=== PATIENT | male | born 1960 | race American Indian/Alaskan Native ===

== ENCOUNTER 2016-11-01 11:52 | Emergency (ER) | payer SELFPAY ==
--- NOTE | 2016-11-01 13:50 | Emergency Department Report ---
Entered by RIA HERRERA, acting as scribe for YANIRA JONES PA. - HPI History of Present Illness: Pt c/o foot ulcers on both feet with associated 9/10 constant sharp pain for 1 month. Pt reports he received a pedicure 1 month and notes he had skin removed from his feet. He states his feet subsequently became infected. Denies having numbness in feet. 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 Pt also c/o of numbness in right hand. Denies any right hand injury/trauma Reports fever and chills. Reports nausea and vomiting. PMHx of IDDM and HTN. Notes BP was 180 yesterday. - ROS Review of Systems: All system are negative unless stated in HPI above. - Exam Vital Signs: Vital Signs 11/01/16 12:51 Temperature 98.5 F Pulse Rate 80 Respiratory 18 Rate Blood Pressure 132/73 O2 Sat by Pulse 100 Oximetry Physical Exam: General: well nourished, well developed, 56 year old male in no acute distress and nontoxic in appearance Lungs: Clear to auscultation bilaterally, no rhonchi, wheezes, or rales. Normal work of breathing. No use of accessory muscles Extremities: No CCE. +2 pulses. Mild swelling to right foot. Negative calf tenderness bilaterally. Good color, warm temperature to feet bilaterally. Good movement of bilateral feet. Diminished sensation to feet bilaterally. Right hallux is discolored. Ecchymosis present around wound on right lateral foot with 5 cm x 6 cm of surrounding swelling and 4 cm x 5 cm of induration. Mild fluctuance and scabbing present with some dark tissue around wound with purulent drainage in center of wound to right foot. Erythema present around edges of right foot. Left hallux, 2nd toe, 3rd toe are discolored. Hard callus present on left foot that is crusted over with scabbing and drainage, and sharp edges to touch. No erythema noted to left foot. Left hallux toenail is partially off of nail bed. MSE screening note: Focused history and physical exam performed. Due to findings the following was ordered: see below <YANIRA JONES - Last Filed: 11/01/16 13:49> - Exam Vital Signs: Vital Signs 11/01/16 11/01/16 11/01/16 12:51 16:25 16:30 Temperature 98.5 F Pulse Rate 80 85 80 Respiratory 18 15 14 Rate Blood Pressure 132/73 160/82 O2 Sat by Pulse 100 100 Oximetry 11/01/16 11/01/16 16:41 16:51 Temperature Pulse Rate 77 88 Respiratory 17 18 Rate Blood Pressure 160/82 160/82 O2 Sat by Pulse 100 100 Oximetry MSE screening note: Focused history and physical exam performed. Due to findings the following was ordered: <TAMY SAINI - Last Filed: 11/01/16 17:32> Chief Complaint: Extremity Injury, Lower Stated Complaint: FOOT INFECTION Time Seen by Provider: 11/01/16 13:05 ED Medical Decision Making - Medical Decision Making MDM: Patient screened by provider in triage area. Appropriate protocol initiated. Patient to be seen by MD on main ED side. <YANIRA JONES - Last Filed: 11/01/16 13:49> - Lab Data Result diagrams: 11/01/16 14:02 11/01/16 14:02 <TAMY SAINI - Last Filed: 11/01/16 17:32> ED Disposition for MSE <YANIRA JONES - Last Filed: 11/01/16 13:49> <TAMY SAINI - Last Filed: 11/01/16 17:32> Condition: Stable - Addendum Date: 11/01/16 Note: Examination the patient. There is no evidence of abscess on clinical examination. Will give patient a 1 g of vancomycin control blood sugar advised patient is his primary care physician and f/u with a foot doctor. <TAMY SAINI - Last Filed: 11/01/16 17:32> This documentation as recorded by the SHARON eng JASMINE,accurately reflects the service I personally performed and the decisions made by me,YANIRA JONES PA.
[2016-11-01 14:35] LABS: Basophils % (Auto) 0.3 % (0.0-1.8); Eosinophils % (Auto) 1.3 % (0.0-4.3); Hemoglobin 10.8 gm/dl (11.8-15.2); Mean Corpuscular HGB Conc 33 % (32-34); Mean Corpuscular Volume 75 fl (84-94); Platelet Count 295 K/mm3 (140-440); Red Blood Count 4.37 M/mm3 (3.65-5.03); White Blood Count 13.2 K/mm3 (4.5-11.0)
[2016-11-01 14:37] LABS: Mean Corpuscular Hemoglobin 25 pg (28-32)
[2016-11-01 14:46] LABS: Alanine Aminotransferase 21 units/L (7-56); Albumin 3.9 g/dL (3.9-5); Albumin/Globulin Ratio 1.1 %; Alkaline Phosphatase 114 units/L (35-129); Anion Gap 18 mmol/L; BUN/Creatinine Ratio 10.83; Blood Urea Nitrogen 13 mg/dL (9-20); Carbon Dioxide 26 mmol/L (22-30); Chloride 96.1 mmol/L (98-107); Glucose 319 mg/dL (75-100); Potassium 3.9 mmol/L (3.6-5.0); Sodium 136 mmol/L (137-145); Total Protein 7.6 g/dL (6.3-8.2)
[2016-11-01 14:59] LABS: Bilirubin,Urine NEG (Negative); Blood,Urine SM (Negative); Ketones,Urine TR mg/dL (Negative); Leukocyte Esterase,Urine NEG (Negative); Mucus,Urine FEW /HPF; Nitrite,Urine NEG (Negative); Protein,Urine <15 mg/dL mg/dL (Negative); Urobilinogen,Urine < 2.0 mg/dL (<2.0)
[2016-11-01] MEDS ORDERED: VANCOMYCIN/NS 1 GM/250 ML 1 GM/250 ML BAG IV ONE (17:28)
[2016-11-01] MEDS ORDERED: NACL 0.9% 1000 ML 1,000 ML IV ONE (17:28)
[2016-11-01] MEDS ORDERED: ZOFRAN IV ONE (17:28)
--- NOTE | 2016-11-01 21:21 | Emergency Department Report ---
- General Chief Complaint: Extremity Injury, Lower Stated Complaint: FOOT INFECTION Time Seen by Provider: 11/01/16 17:17 Source: patient Mode of arrival: Ambulatory Limitations: No Limitations - History of Present Illness Initial Comments: Patient stated that he had peducure done one month ago he started to notice that his infection was thought to develop, denied any fever or nausea or vomiting. -: Gradual, month(s) Extremity Location: Left: Foot, Right: Foot - Related Data Previous Rx's Medication Instructions Recorded Last Taken Type Ciprofloxacin HCl [Ciprofloxacin 500 mg PO Q12H #20 tab 11/01/16 Unknown Rx TAB] Clindamycin [Clindamycin CAP] 300 mg PO Q8H #30 cap 11/01/16 Unknown Rx Allergies Allergy/AdvReac Type Severity Reaction Status Date / Time No Known Allergies Allergy Verified 11/01/16 12:55 ED Review of Systems ROS: Stated complaint: FOOT INFECTION Other details as noted in HPI Comment: All other systems reviewed and negative Constitutional: denies: chills, fever ENT: denies: throat pain Respiratory: denies: cough, shortness of breath Cardiovascular: denies: chest pain, palpitations Endocrine: denies: excessive sweating, flushing Gastrointestinal: denies: abdominal pain, nausea Neurological: denies: headache ED Past Medical Hx - Past Medical History Previous Medical History?: Yes Hx Hypertension: Yes Hx Diabetes: Yes Additional medical history: ulcer - Surgical History Past Surgical History?: No - Social History Smoking Status: Current Every Day Smoker Substance Use Type: Alcohol - Medications Home Medications: Home Medications Medication Instructions Recorded Confirmed Last Taken Type Ciprofloxacin HCl [Ciprofloxacin 500 mg PO Q12H #20 tab 11/01/16 Unknown Rx TAB] Clindamycin [Clindamycin CAP] 300 mg PO Q8H #30 cap 11/01/16 Unknown Rx ED Physical Exam - General Limitations: No Limitations General appearance: alert - Head Head exam: Present: atraumatic - Eye Eye exam: Present: normal appearance - ENT ENT exam: Present: normal exam - Neck Neck exam: Present: normal inspection - Respiratory Respiratory exam: Present: normal lung sounds bilaterally - Cardiovascular Cardiovascular Exam: Present: regular rate, normal rhythm, normal heart sounds - GI/Abdominal GI/Abdominal exam: Present: soft. Absent: distended, tenderness, guarding, rebound (RIGHT FOOT WITH 4X3 CM SWELLING, NOT FLUCTUANT , NO ERYTHEMA) - Neurological Exam Neurological exam: Present: alert, oriented X3, CN II-XII intact - Skin Skin exam: Present: warm ED Course Vital Signs 11/01/16 11/01/16 11/01/16 12:51 16:25 16:30 Temperature 98.5 F Pulse Rate 80 85 80 Respiratory 18 15 14 Rate Blood Pressure 132/73 160/82 O2 Sat by Pulse 100 100 Oximetry 11/01/16 11/01/16 11/01/16 16:41 16:51 19:00 Temperature Pulse Rate 77 88 82 Respiratory 17 18 14 Rate Blood Pressure 160/82 160/82 166/78 O2 Sat by Pulse 100 100 100 Oximetry 11/01/16 11/01/16 20:01 20:50 Temperature Pulse Rate 85 Respiratory 18 17 Rate Blood Pressure 122/45 O2 Sat by Pulse 100 96 Oximetry - Reevaluation(s) Reevaluation #1: 11/01/16 21:22 Patient right lesion does not look like an active abscess is not fluctuant no evidence of erythema cellulitis, patient received vancomycin 1 g on culture obtained and advised to follow with his primary doctor ED Medical Decision Making - Lab Data Result diagrams: 11/01/16 14:02 11/01/16 14:02 Critical care attestation.: If time is entered above; I have spent that time in minutes in the direct care of this critically ill patient, excluding procedure time. ED Disposition Clinical Impression: Foot infection, Hyperglycemia Disposition: - TO HOME OR SELFCARE Is pt being admited?: No Does the pt Need Aspirin: No Condition: Stable Instructions: Wound Infection (ED) Prescriptions: Ciprofloxacin HCl [Ciprofloxacin TAB] 500 mg PO Q12H #20 tab Clindamycin [Clindamycin CAP] 300 mg PO Q8H #30 cap Referrals: PRIMARY CARE, [Primary Care Provider] - 3-5 Days
[2016-11-01 22:03] VITALS: BP 151/73
== END 2016-11-01 22:04 | disposition home or self-care (01) ==
LOC: ED 11:52
DX: T81.4XXA Infection following a procedure, initial encounter (principal); Y92.9 Unspecified place or not applicable; I10 Essential (primary) hypertension; E11.9 Type 2 diabetes mellitus without complications; F17.200 Nicotine dependence, unspecified, uncomplicated
CPT/HCPCS: 36415; 80053; 81001; 82962; 85025; 87040; 87116; 96365; 96366; 96375; 96376; 99283; J2405; J3370; J7030; J1815

== ENCOUNTER 2017-01-04 10:22 | Emergency (ER) | payer SELFPAY ==
[2017-01-04 10:53] VITALS: BP 118/73
--- NOTE | 2017-01-04 11:00 | Emergency Department Report ---
Chief Complaint: Medical Clearance Stated Complaint: PICK LINE REPLACEMENT Time Seen by Provider: 01/04/17 10:54 - HPI History of Present Illness: PT states he was trying to rescue kittens and his picc line was cut by a sheet of metal. PT states [place] put the picc line in. - ROS Review of Systems: - cp - sob - Exam Vital Signs: Vital Signs 01/04/17 10:50 Temperature 98.3 F Pulse Rate 923 H Respiratory 18 Rate Blood Pressure 118/73 O2 Sat by Pulse 99 Oximetry Physical Exam: pt is alert and appropriate RUE With Picc line in place. dressing loose. picc line is cut. MSE screening note: Focused history and physical exam performed. Due to findings the following was ordered: ED Disposition for MSE Condition: Stable
== END 2017-01-04 20:47 | disposition left against medical advice (07) ==
LOC: ED 10:22
DX: Z53.21 Procedure and treatment not carried out due to patient leaving prior to being seen by health care provider (principal)